=== PATIENT | female | born 2000 | race African-American/Black ===

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

== ENCOUNTER → 2019-05-03 | Outpatient (CLI) | payer OTHER ==
[2019-05-03 11:48] VITALS: BP 105/71; PULSE 73; RESP 16; TEMP 98.5; BMI 36.8
--- NOTE | 2019-05-03 12:51 | P.HPOB ---
History of Present Illness H&P Date: 05/03/19 Chief Complaint: The pt is here for her routine gynecologic exam and Depo-Pr overa injection This is a 18-year-old G0 within LMP of 04/20/19. She has been on Depo-Provera for about 1 1/2 years. She states she has done well with Depo-Provera and has infrequent spotting. She has not been having any menstrual period like flow while on Depo-Provera. She is without gynecologic complaints. She is contemplating changing to an IUD or the implant for control and is planni ng to move to [place] sometime in June. She believes she will be there for about 2 years while she attends school there. Review of Systems The patient has gained 15 pounds over the last year. She denies respiratory, cardiac, or G.I. problems. Past Medical History Past Medical History: Asthma Additional Past Medical History / Comment(s): Seasonal allergies. 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 She has completed the HPV vaccination series. History of Any Multi-Drug Resistant Organisms: None Reported Past Surgical History: No Surgical Hx Reported Past Psychological History: ADD/ADHD Smoking Status: Never smoker Past Alcohol Use History: None Reported Past Drug Use History: Marijuana (Infrequent) Additional History: She is single and is currently not seeing anybody at this time. She works at [employer]. She is planning to attend a [employer] school in [place]. - Past Family History Father Family Medical History: No Reported History Additional Family Medical History / Comment(s): Paternal grandmother and paternal great-grandmother had diabetes. Medications and Allergies Home Medications Medication Instructions Recorded Confirmed Type Medroxyprogesterone Acetate 150 mg IM 05/03/19 History [Depo-Provera] Allergies Allergy/AdvReac Type Severity Reaction Status Date / Time No Known Allergies Allergy Verified 05/03/19 11:44 Exam Vital Signs Temp Pulse Resp BP Pulse Ox 05/03/19 11:45 98.5 F 73 16 105/71 100 Intake and Output 05/02/19 05/03/19 05/03/19 22:59 06:59 14:59 Other: Weight 88.451 kg Height 5'1", weight 195 pounds, BMI 36.8. This is a well-developed well-nourished heavyset black female who is alert and oriented times 3 in no acute distress. HEENT: Within normal limits. NECK: Supple without mass or thyromegaly. CHEST AND LUNGS: Clear to auscultation. HEART: Regular rate and rhythm. BREASTS: Are without mass or discharge. AXILLARY EXAM: Negative for adenopathy. BACK: Negative for CVA tenderness. ABDOMEN: Soft, nontender, without palpable masses. PELVIC EXAM: Normal external genitalia. Cervix and vagina appear normal. There is no unusual discharge. There is no evidence of prolapse. The uterus is midposition, nongravid size and nontender. There are no palpable adnexal masses or tenderness. Bimanual examination is somewhat limited secondary to her size. RECTAL EXAM: deferred EXTREMITIES: Nontender. Depo-Provera 150mg injection #6 given into left deltoid muscle. Expiration date: 12/29/2022 lot number: [id number] serial number: [id number] IMPRESSION: 1. 18-year-old female with normal gynecologic exam. 2. The patient has been essentially amenorrheic on Depo-Provera. Her 6th injection was given today. PLAN: 1. Pap smears have been deferred until age 20. 2. Self breast awareness was discussed with the patient. 3. STD prevention was discussed. I have stressed the importance of limiting sexual partners. I've also stressed the importance of using condoms if she is sexually active. 4. GC and chlamydia testing from the cervix has been obtained. 5. We have had a long discussion regarding other options of control including the different types of IUDs, on implant, and oral contraception. She will read up on the different types of options and will call to let me know which she has chosen. 6. She should return in 3 months for her next Depo-Provera injection, or choose one of the other options and she can call so we can arrange for the change in control. 7.Osteoporosis prevention was discussed. I have stressed the importance of adequate calcium, vitamin D and regular exercise. Recommended amounts of calcium and vitamin D were also discussed. I have stressed the importance of doing this especially because Depo-Provera is known to weaken bones over time. I have also recommended changing her control method because of this. 8.She was advised to return in one year for her annual well woman exam, or she will establish with a caregiver in [place] for her annual exams.
== END | disposition home or self-care (01) ==
LOC: WWCWWP 11:00
PROVIDERS: ATTEND Obstetrics & Gynecology
DX: Z53.9 Procedure and treatment not carried out, unspecified reason (principal)